=== PATIENT | female | born 1935 | race Two or more races ===

== ENCOUNTER 2019-07-25 19:47 | Inpatient (IN) | payer MEDICARE, OTHER ==
[~2019-07-25] VITALS: Ht 157.5 cm; Wt 56.2 kg
--- NOTE | 2019-07-25 19:50 | NUR ---
PT AAOX1. FOLLOWS COMMANDS AND IS SLOVENIAN SPEAKING. BIBPA C/O COUGH & CONGESTION, (+) COVID 07/18. UPON ARRIVAL NO COUGH NOR CONGESTION NOTED. PT PLACED ON MONITOR AND PULSE OX. VSS.
[2019-07-25] MEDS ORDERED: DOCU-141 PO (20:03)
[2019-07-25] MEDS ORDERED: LACT-47 PO (20:03)
[2019-07-25] MEDS ORDERED: ESCI10TA PO (20:03)
[2019-07-25] MEDS ORDERED: METO-357 PO (20:03)
[2019-07-25] MEDS ORDERED: RALO60TA PO (20:03)
[2019-07-25] MEDS ORDERED: TRAZ-257 PO (20:03)
[2019-07-25] MEDS ORDERED: ACET-907 PO (20:03)
--- NOTE | 2019-07-25 20:29 | NUR ---
BURLAP ROLL COVERER AT BEDSIDE FOR LABS
--- NOTE | 2019-07-25 20:38 | NUR ---
CALLED LAB FOR COVID TEST
[2019-07-25 20:42] LABS: BASOPHILS % (AUTO) 0.7 % (0.0-2.0); EOSINOPHILS % (AUTO) 1.2 % (0.0-6.0); HEMATOCRIT 47 % (33-45); HEMOGLOBIN 15.3 g/dL (11.5-14.8); LYMPHOCYTES # (AUTO) 1.3 /CMM (0.8-4.8); LYMPHOCYTES % (AUTO) 35.8 % (20.0-44.0); MEAN CORPUSCULAR HGB CONC 33 g/dl (31.0-36.0); MEAN CORPUSCULAR VOLUME 87 fL (82-100); MONOCYTES # (AUTO) 0.6 /CMM (0.1-1.30); MONOCYTES % (AUTO) 16.4 % (2.0-12.0); NEUTROPHILS # (AUTO) 1.7 /CMM (1.8-8.9); NEUTROPHILS % (AUTO) 45.9 % (43.0-81.0); PLATELET COUNT (AUTO) 198 /CMM (150-450); RED BLOOD CELL COUNT(AUTO) 5.39 MIL/uL (4.0-5.2); WHITE BLOOD COUNT (AUTO) 3.7 K/uL (4.3-11.0)
[2019-07-25 20:52] LABS: CALCIUM, SERUM 8.4 mg/dL (8.5-10.1); CARBON DIOXIDE 29 mmol/L (21-32); CHLORIDE 107 mmol/L (98-107); CREATININE 1.2 mg/dL (0.6-1.3); GLUCOSE 87 mg/dL (74-106); SODIUM SERUM 142 mmol/L (136-145); UREA NITROGEN, BLOOD 20 mg/dL (7-18)
--- NOTE | 2019-07-25 20:52 | NUR ---
URINE, COVID, AND INF SENT TO LAB
[2019-07-25 21:05] LABS: ALANINE AMINOTRANSFERASE 19 U/L (12-78); ALBUMIN 3.1 g/dL (3.4-5.0); ALKALINE PHOSPHATASE 63 U/L (46-116); ASPARTATE AMINOTRANSFERASE 13 U/L (15-37); B-TYPE NATRIURETIC PEPTIDE 427 PG/ML (0-125); BILIRUBIN,TOTAL 0.5 mg/dL (0.2-1.0); TOTAL PROTEIN, SERUM 6.1 g/dL (6.4-8.2)
[2019-07-25 21:08] LABS: APPEARANCE,URINE Slightly Cloudy (CLEAR); BILIRUBIN,URINE Negative (NEGATIVE); BLOOD, URINE Negative Ery/uL (NEGATIVE); COLOR,URINE Dark (YELLOW); KETONES,URINE Trace (NEGATIVE); LEUKOCYTE ESTERASE ,URINE Negative (NEGATIVE); NITRITE, URINE Negative (NEGATIVE); PROTEIN,URINE Trace mg/dl (NEGATIVE); UGLUCOSE Negative (NEGATIVE); UROBILINOGEN,URINE 0.2 EU/dL (0.2)
[2019-07-25 21:17] LABS: BACTERIA,URINE Moderate /HPF (None Seen)
[2019-07-25 21:18] LABS: RBC,URINE 0-2 /HPF (0-2); SQUAMOUS EPITHELIAL CELL,UR Few /HPF (None Seen); WBC,URINE 0-2 /HPF (0-3)
[2019-07-25 21:19] LABS: HYALINE CASTS, URINE Rare /LPF (None Seen)
[2019-07-25 21:22] LABS: D-DIMER 0.41 mg/L(FEU (0.17-0.50)
[2019-07-25 21:34] LABS: C-REACTIVE PROTEIN 1.1 mg/dL (0.0-0.9); CREATINE KINASE, TOTAL 31 U/L (26-192); FERRITIN 78 ng/mL (8-388)
[2019-07-25] MEDS ORDERED: ONDANSETRON HCL/PF 4 MG/2 ML VIAL IVP PRN (22:00)
[2019-07-25] MEDS ORDERED: ZOLPIDEM TARTRATE 5 MG TABLET PO PRN (22:00)
[2019-07-25] MEDS ORDERED: MAG HYDROX/AL HYDROX/SIMETH 30 ML UDC PO PRN (22:00)
[2019-07-25] MEDS ORDERED: Z GUARD REMEDY 2 OZ OINT TP PRN (22:00)
[2019-07-25] MEDS ORDERED: ACETAMINOPHEN 325 MG TABLET PO PRN (22:00)
[2019-07-25] MEDS ORDERED: MAGNESIUM HYDROXIDE 30 ML UDC PO PRN (22:00)
[2019-07-25] MEDS ORDERED: HYDROCODONE/APAP 5/325MG 1 EACH TABLET PO PRN (22:00)
[2019-07-25] MEDS ORDERED: LORAZEPAM INJ 2 MG/ML VIAL IV ONE (22:30)
[2019-07-25] MEDS: TRAZODONE 50 MG TABLET PO SCH (22:33)
--- NOTE | 2019-07-25 22:55 | NUR ---
REPORT GIVEN TO EDITH CRAWFORD FOR DAXA
--- NOTE | 2019-07-25 23:22 | NUR ---
PT TRANSFERED PER ACLS PROTOCOL
--- NOTE | 2019-07-25 23:30 | NUR ---
RN NOTE PT ARRIVED VIA GURNEY A/O X 2, PT ON RA, VS TAKEN PT CLEANED AND MADE COMFORTABLE. PT IN NO RESPIRATORY DISTRESS, IV TO LEFT WRIST 20 GAUGE PATENT AND INTACT, FLUSHING WELL. PT PLACED ON TELE MONITOR CURRENTLY SR 68, SIDE SAILS UP X 2, BED LOCKED AND IN LOWEST POSITION WILL CONTINUE TO MONITOR PT
[2019-07-26] VITALS: BP 143/71
[2019-07-26 04:00] VITALS: BP 150/71
[2019-07-26] MEDS ORDERED: LORAZEPAM INJ 2 MG/ML VIAL IV ONE (04:08)
--- NOTE | 2019-07-26 06:43 | NUR ---
RN CLOSING NOTE PT AWAKE, SITING UP IN BED, PT ON RA IN NO RESPIRATORY DISTRESS, IV TO LEFT WRIST 20 GAUGE PATENT AND INTACT, FLUSHING WELL. PT ON TELE MONITOR CURRENTLY SR, SIDE SAILS UP X 3, BED LOCKED AND IN LOWEST POSITION WILL CONTINUE TO MONITOR PT.
[2019-07-26 06:55] LABS: BASOPHILS % (AUTO) 0.4 % (0.0-2.0); EOSINOPHILS % (AUTO) 1.3 % (0.0-6.0); HEMATOCRIT 46 % (33-45); HEMOGLOBIN 15.3 g/dL (11.5-14.8); LYMPHOCYTES # (AUTO) 1.5 /CMM (0.8-4.8); LYMPHOCYTES % (AUTO) 37.9 % (20.0-44.0); MEAN CORPUSCULAR HGB CONC 33 g/dl (31.0-36.0); MEAN CORPUSCULAR VOLUME 86 fL (82-100); MONOCYTES # (AUTO) 0.7 /CMM (0.1-1.30); MONOCYTES % (AUTO) 16.8 % (2.0-12.0); NEUTROPHILS # (AUTO) 1.8 /CMM (1.8-8.9); NEUTROPHILS % (AUTO) 43.6 % (43.0-81.0); PLATELET COUNT (AUTO) 185 /CMM (150-450); RED BLOOD CELL COUNT(AUTO) 5.37 MIL/uL (4.0-5.2); WHITE BLOOD COUNT (AUTO) 4.1 K/uL (4.3-11.0)
--- NOTE | 2019-07-26 07:15 | NUR ---
MS RN RECEIVED ON BED,SLEEPING,NOT IN ANY FORM OF DISTRESS, BILATERAL ARM SOFT RESTRAINT ON, FOR SAFETY,IV AT LEFT WRIST, LEAKING, NOT FUNCTIONING, WILL MONITOR PATIENT.
[2019-07-26 07:23] LABS: CALCIUM, SERUM 8.7 mg/dL (8.5-10.1); MAGNESIUM 2.1 mg/dL (1.8-2.4); PHOSPHORUS 3.5 mg/dL (2.5-4.9); POTASSIUM 4.3 mmol/L (3.5-5.1)
[2019-07-26 08:00] VITALS: BP_SYST 140; BP_SYST 141; BP_DIAS 50; BP_DIAS 55
[2019-07-26] MEDS ORDERED: IV NS 0.9% 1,000 ML IV PRN (09:51)
--- NOTE | 2019-07-26 10:30 | NUR ---
MS CRAWFORD AM MEDS,GIVEN GIVEN,TOLERATED WELL.
[2019-07-26] MEDS: METOPROLOL SUCCINATE 50 MG TAB.SR.24H PO SCH (10:52)
[2019-07-26] MEDS: DOCUSATE SODIUM 100 MG CAPSULE PO SCH (10:53)
[2019-07-26] MEDS: ESCITALOPRAM OXALATE (10 MG) 10 MG TABLET PO SCH (10:53)
--- NOTE | 2019-07-26 11:50 | NUR ---
MS RN PATIENT AWAKE, VERY CONFUSED, COMBATIVE, GETTING OUT OF BED, WILL MONITOR PATIENT.
[2019-07-26 12:00] VITALS: BP_SYST 140; BP_SYST 144; BP_DIAS 56; BP_DIAS 60
[2019-07-26] MEDS ORDERED: hydrOXYzine HCL INJ 25 MG/ML VIAL IM STA (12:13)
--- NOTE | 2019-07-26 12:22 | NUR ---
DR. LONI DUMONT NOTIFIED PATIENT VERY CONFUSED PULLING OUT RESTRAINT,FALL RISK UNABLE TO GIVE VISTARIL PER PHARMACY NOT AVAILABLE,LONI DUMONT PAGED AWAITS FOR RESPONSE.
[2019-07-26] MEDS ORDERED: LORAZEPAM INJ 2 MG/ML VIAL IM/IV STA (12:29)
--- NOTE | 2019-07-26 12:32 | NUR ---
PATIENT VERY CONFUSED SCREAMING AND SITTING EDGE OF BED ,ABLE TO BREAK RESTRAINT,DR. LONI DUMONT ORDERED ATIVAN AND WILL WATCH RESPIRATORY STATUS .NURSING PRODUCT INTRODUCTION MANAGER NOTIFIED REGARDING SITTER ORDER.
[2019-07-26 16:00] VITALS: BP 142/55
--- NOTE | 2019-07-26 17:50 | NUR ---
MS RN ON BED,, W/ SITTER, REFUSED TO INSERT IV,NO DISTRESS NOTED, W/ SITTER NOW FOR SAFETY AND COMFORT.
[2019-07-26 20:00] VITALS: BP 126/61
--- NOTE | 2019-07-26 20:00 | NUR ---
RN NOTES RECEIVED PT. AWAKE , A/OX2, FARSI SPEAKING WITH SITTER, SR WITH BBB ON TELE MONITOR HR-87, NO IV ACCESS, TALKED TO THE PATIENT BUT PT DOESN'T WANT ME TO TOUCH HER ARM, SIDERAILSUPX2, CALL LIGHT WITHIN REACH, SIDERAILSUPX2, WILL CONTINUE TO MONITOR
[2019-07-26] MEDS: TRAZODONE 50 MG TABLET PO SCH (22:59)
[2019-07-27] VITALS: BP 101/55
--- NOTE | 2019-07-27 01:32 | NUR ---
RN NOTES 0129 RECEIVED CALL FROM LAB C/O Meng SERRA FOR COVID RESULT POSITIVE. PRIMARY RN LIZA MADE AWARE
--- NOTE | 2019-07-27 03:00 | NUR ---
RN NOTES PT IS NOT ON RESTRAINTS Addendum: 07/27/19 at 0315 by LIZA BRADSHAW RN Amended: Links added.
[2019-07-27 04:00] VITALS: BP 126/83
--- NOTE | 2019-07-27 06:00 | NUR ---
RN NOTES INFORMED JOSE G GOINS THAT PT. IS REFUSING TO HAVE AN IV ACCESS
--- NOTE | 2019-07-27 06:43 | NUR ---
RN NOTES AAKE, MORNING CARE RENDERED, NOT IN DISTRESS, NO PAIN NOTED, PT. NEEDS ATTENDED
--- NOTE | 2019-07-27 07:30 | NUR ---
rn notes received patient in bed, awake, able to make needs known but expresses self best in [facility]. not on any form of distress, breathing unlabored, on room air, toleratign well. no complaints of pain. sinus rhythm on the monitor with hr on the on the 70s. patient with no iv access at this time- per report MD is aware, will try to insert one when able. patient encourage to call for help/assistance, safety measures observed and maintained. bed alarm on, call light within reach, will continue to monitor patient accordingly
[2019-07-27 08:00] VITALS: BP 128/74
[2019-07-27] MEDS: ESCITALOPRAM OXALATE (10 MG) 10 MG TABLET PO SCH (08:05)
[2019-07-27] MEDS: DOCUSATE SODIUM 100 MG CAPSULE PO SCH (08:05)
[2019-07-27] MEDS: METOPROLOL SUCCINATE 50 MG TAB.SR.24H PO SCH (08:09)
[2019-07-27 12:00] VITALS: BP 141/79
[2019-07-27 16:00] VITALS: BP 127/76
--- NOTE | 2019-07-27 18:52 | NUR ---
Handoff with night team registered nurse. Pedro Rutherford RN
[2019-07-27 20:00] VITALS: BP 145/76
[2019-07-27] MEDS: TRAZODONE 50 MG TABLET PO SCH (21:24)
[2019-07-28] VITALS (7 sets, daily range): BP systolic 131–142; BP diastolic 60–77
--- NOTE | 2019-07-28 01:37 | NUR ---
PATIENT CONTINUES TO PULL OUT LEADS FROM TELE MONITOR. NO SITTER AT THIS TIME. WILL CONTINUE TO MONITOR PATIENT.
[2019-07-28 06:31] LABS: BASOPHILS % (AUTO) 0.3 % (0.0-2.0); EOSINOPHILS % (AUTO) 1.2 % (0.0-6.0); HEMATOCRIT 46 % (33-45); HEMOGLOBIN 15.2 g/dL (11.5-14.8); LYMPHOCYTES # (AUTO) 1.2 /CMM (0.8-4.8); LYMPHOCYTES % (AUTO) 24.5 % (20.0-44.0); MEAN CORPUSCULAR HGB CONC 33 g/dl (31.0-36.0); MEAN CORPUSCULAR VOLUME 86 fL (82-100); MONOCYTES # (AUTO) 0.6 /CMM (0.1-1.30); MONOCYTES % (AUTO) 12.1 % (2.0-12.0); NEUTROPHILS % (AUTO) 61.9 % (43.0-81.0); PLATELET COUNT (AUTO) 175 /CMM (150-450); WHITE BLOOD COUNT (AUTO) 4.9 K/uL (4.3-11.0)
[2019-07-28 06:54] LABS: CALCIUM, SERUM 8.2 mg/dL (8.5-10.1); CREATININE 1.1 mg/dL (0.6-1.3); PHOSPHORUS 3.2 mg/dL (2.5-4.9); POTASSIUM 3.9 mmol/L (3.5-5.1)
--- NOTE | 2019-07-28 07:04 | NUR ---
TELE/RN PATIENT IN BED ASLEEP ON ROOM AIR WITH NO SIGN ON ANY SOB SATURATING AT 96%. PATIENT IS AMBULATORY WITH BATHROOM PRIVILEGES. PATIENT CONT TO HAVE NO IV ACCESS. PATIENT HAS PULLED OUT IV BEFORE. AND CONTINUOUSLY REMOVES TELE BOX. ALL SAFETY PRECAUTIONS HAVE BEEN APPLIED. WILL ENDORSE PATIENT TO MORNING SHIFT NURSE FOR DAXA.
[2019-07-28] MEDS: ESCITALOPRAM OXALATE (10 MG) 10 MG TABLET PO SCH (09:33)
[2019-07-28] MEDS: DOCUSATE SODIUM 100 MG CAPSULE PO SCH (09:33)
[2019-07-28] MEDS: METOPROLOL SUCCINATE 50 MG TAB.SR.24H PO SCH (09:36)
--- NOTE | 2019-07-28 14:38 | NUR ---
alert, oriented, and appropriate, ra, sat well. walked to the bathroom, no assistance needed. no iv access, no heart monitor, no bed alarm. cooperative with care
[2019-07-28] MEDS: TRAZODONE 50 MG TABLET PO SCH (22:00)
[2019-07-29] VITALS (7 sets, daily range): BP systolic 113–136; BP diastolic 64–81
[2019-07-29 07:03] LABS: BASOPHILS % (AUTO) 0.2 % (0.0-2.0); EOSINOPHILS % (AUTO) 0.3 % (0.0-6.0); HEMATOCRIT 46 % (33-45); HEMOGLOBIN 15.2 g/dL (11.5-14.8); LYMPHOCYTES # (AUTO) 1.3 /CMM (0.8-4.8); LYMPHOCYTES % (AUTO) 22.8 % (20.0-44.0); MEAN CORPUSCULAR HGB CONC 33 g/dl (31.0-36.0); MEAN CORPUSCULAR VOLUME 86 fL (82-100); MONOCYTES # (AUTO) 0.8 /CMM (0.1-1.30); MONOCYTES % (AUTO) 13.7 % (2.0-12.0); NEUTROPHILS # (AUTO) 3.5 /CMM (1.8-8.9); PLATELET COUNT (AUTO) 182 /CMM (150-450); RED BLOOD CELL COUNT(AUTO) 5.31 MIL/uL (4.0-5.2); WHITE BLOOD COUNT (AUTO) 5.5 K/uL (4.3-11.0)
[2019-07-29 07:17] LABS: CALCIUM, SERUM 8.3 mg/dL (8.5-10.1); CREATININE 1.1 mg/dL (0.6-1.3); PHOSPHORUS 3.7 mg/dL (2.5-4.9); POTASSIUM 3.5 mmol/L (3.5-5.1)
--- NOTE | 2019-07-29 07:40 | NUR ---
RN NOTES RECEIVED PATIENT IN BED ASLEEP ON ROOM AIR, TOLERATING WELL. NO SIGNS OF ACUTE DISTRESS NOTED AT THIS TIME. NO IV ACCESS PER SEWAGE SCREEN OPERATOR PATIENT REFUSED EVEN AFTER EXPLAINING THE RISKS AND BENEFITS. ALL SAFETY PRECAUTIONS HAVE BEEN APPLIED. WILL CONTINUE TO MONITOR.
[2019-07-29] MEDS: DOCUSATE SODIUM 100 MG CAPSULE PO SCH (08:24)
[2019-07-29] MEDS: ESCITALOPRAM OXALATE (10 MG) 10 MG TABLET PO SCH (08:24)
[2019-07-29] MEDS: METOPROLOL SUCCINATE 50 MG TAB.SR.24H PO SCH (08:25)
--- NOTE | 2019-07-29 19:00 | NUR ---
recieved the patient in bed . smiling and waving to me as i walked toward her be. she drank some juice and had no problems swallowing. asp precautions in effect d/t age. droplet and contact isolation on going
--- NOTE | 2019-07-29 19:06 | NUR ---
RN NOTES PATIENT IN BED ASLEEP ON ROOM AIR, TOLERATING WELL. NO SIGNS OF ACUTE DISTRESS NOTED THROUGHOUT THE SHIFT. NO IV ACCESS PER REPLENISHMENT BUYER PATIENT REFUSED EVEN AFTER EXPLAINING THE RISKS AND BENEFITS. ALL SAFETY PRECAUTIONS HAVE BEEN APPLIED. WILL ENDORSE TO REPLENISHMENT BUYER NURSE FOR DAXA.
[2019-07-29] MEDS: TRAZODONE 50 MG TABLET PO SCH (22:12)
[2019-07-30 05:00] VITALS: BP 134/77
[2019-07-30 06:39] LABS: BASOPHILS % (AUTO) 0.4 % (0.0-2.0); EOSINOPHILS % (AUTO) 1.1 % (0.0-6.0); HEMATOCRIT 47 % (33-45); HEMOGLOBIN 15.2 g/dL (11.5-14.8); LYMPHOCYTES # (AUTO) 1.8 /CMM (0.8-4.8); LYMPHOCYTES % (AUTO) 32.6 % (20.0-44.0); MEAN CORPUSCULAR HGB CONC 32 g/dl (31.0-36.0); MEAN CORPUSCULAR VOLUME 86 fL (82-100); MONOCYTES # (AUTO) 0.9 /CMM (0.1-1.30); MONOCYTES % (AUTO) 16.6 % (2.0-12.0); NEUTROPHILS # (AUTO) 2.6 /CMM (1.8-8.9); NEUTROPHILS % (AUTO) 49.3 % (43.0-81.0); PLATELET COUNT (AUTO) 172 /CMM (150-450); RED BLOOD CELL COUNT(AUTO) 5.45 MIL/uL (4.0-5.2); WHITE BLOOD COUNT (AUTO) 5.4 K/uL (4.3-11.0)
[2019-07-30 06:46] LABS: CALCIUM, SERUM 8.3 mg/dL (8.5-10.1); CREATININE 0.9 mg/dL (0.6-1.3); MAGNESIUM 2.1 mg/dL (1.8-2.4); POTASSIUM 3.7 mmol/L (3.5-5.1)
[2019-07-30 08:00] VITALS: BP 127/68
--- NOTE | 2019-07-30 08:00 | NUR ---
SENIOR ARCHITECT/DESIGN MANAGER OPENING NOTES RECEIVED PATIENT FROM PERFORMING ARTIST NURSE IN BED, AWAKE, CONSCIOUS, COOPERATIVE, WITH NASAL CANNULA AT 2LPM, NO SIGNS OF RESPIRATORY DISTRESS, NO IV ACCESS, MD AWARE PER PERFORMING ARTIST NURSE.
[2019-07-30] MEDS: DOCUSATE SODIUM 100 MG CAPSULE PO SCH (09:26)
[2019-07-30] MEDS: ESCITALOPRAM OXALATE (10 MG) 10 MG TABLET PO SCH (09:26)
[2019-07-30] MEDS: METOPROLOL SUCCINATE 50 MG TAB.SR.24H PO SCH (09:27)
[2019-07-30 12:00] VITALS: BP 129/59
[2019-07-30 13:00] VITALS: BP 129/59
[2019-07-30 16:00] VITALS: BP 131/75
--- NOTE | 2019-07-30 19:01 | NUR ---
REHABILITATION COUNSELLOR CLOSING NOTES ENDORSED PATIENT TO ELECTRONICS INSTALLER NURSE, IN BED, AWAKE, A/O X 3, NC AT 2LPM, NO SIGNS OF RESPIRATORY DISTRESS, NO IV ACCESS, MD AWARE, SIDE RAILS UP FOR SAFETY.
--- NOTE | 2019-07-30 19:30 | NUR ---
PHYSICIAN EXECUTIVE OPENING NOTE RECEIVED PATIENT ON ISOLATION FOR COVID 19. PATIENT IN BED. A/O X1, RESPONDS TO TOUCH. PATIENT ON OXYGEN 4L/MIN VIA NASAL CANNULA. RESPIRATIONS ARE EVEN AND UNLABORED. NO S/S SOB NOTED. NO S/S PAIN AT THIS TIME. EXTERNAL TELE MONITOR READS SINUS RHYTHM HR 64, GOING IN AND OUT OF AFIB. IN NO APPARENT DISTRESS. IV ACCESS KENYON MIDLINE PATENT AND SALINE LOCKED. BED IS LOW AND LOCKED, HOB ELEVATED IN SEMI FOWLERS, SIDE RAILS UP X3, EXTREMITIES OFFLOADED. CALL LIGHT WITHIN REACH. WILL CONTINUE TO MONITOR. Addendum: 07/31/19 at 0619 by DAVIDA CHANDRA RN PLEASE DISREGARD THIS NOTE. WRONG PATIENT.
--- NOTE | 2019-07-30 19:30 | NUR ---
MS RN OPENING NOTE RECEIVED PATIENT ON ISOLATION FOR COVID 19. PATIENT IN BED. A/O X2, FARSI SPEAKING PER REPORT IS CONFUSED. TOLERATING ROOM AIR. RESPIRATIONS ARE EVEN AND UNLABORED. NO S/S SOB NOTED. NO C/O PAIN AT THIS TIME. IN NO APPARENT DISTRESS. NO IV ACCESS NOTED, PER REPORT MD AWARE. BED IS LOW AND LOCKED, HOB ELEVATED IN SEMI FOWLERS, SIDE RAILS UP X3. CALL LIGHT WITHIN REACH. WILL CONTINUE TO MONITOR.
[2019-07-30 21:00] VITALS: BP 119/66
[2019-07-30] MEDS: TRAZODONE 50 MG TABLET PO SCH (21:38)
--- NOTE | 2019-07-30 22:30 | NUR ---
MS RN NOTE INFORMED DR. REBOLLAR THAT PATIENT IS MEDSURG AND PER DR. ECHEVARRIA PATIENT WITH COVID NEED TO BE PLACED IN TELE MONITOR. INFORMED ME HE DID NOT ORDER MED SURG STATUS AND TELEPHONE ORDERED TELE MONITORING, ORDER READ BACK NOTED AND CARRIED OUT. EXTERNAL TELE MONITOR READS. SINUS RHYTHM HR 70. WILL CONTINUE TO MONITOR.
[2019-07-31] VITALS (11 sets, daily range): BP systolic 118–158; BP diastolic 61–91
--- NOTE | 2019-07-31 06:19 | NUR ---
PERFORMANCE IMPROVEMENT ANALYST CLOSING NOTE PATIENT ON ISOLATION FOR COVID 19. PATIENT IN BED. A/O X2, CONFUSED. REMAINS TOLERATING ROOM AIR. RESPIRATIONS ARE EVEN AND UNLABORED. NO SOB NOTED. NO C/O PAIN. NO DISTRESS. STILL REMAINS WITH NO IV ACCESS. BED REMAINS LOW AND LOCKED, HOB ELEVATED IN SEMI FOWLERS, SIDE RAILS UP X3. CALL LIGHT WITHIN REACH. WILL ENDORSE TO NEXT SHIFT.
--- NOTE | 2019-07-31 07:20 | NUR ---
CHIEF OF PEDIATRIC UROLOGY NOTES RECEIVED PATIENT IN BED. ALERT AND ORIENTED X2. PATIENT CONFUSED. REMOVED TELE MONITORING NUMEROUS TIMES DESPITE OF EDUCATION AND EXPLANATIONS WITH NUMEROUS REALITY ORIENTATION. ON TELE MONITORING SR: 64. PATIENT REFUSED IV ACCES DESPITE OF EXPLANATIONS AND EDUCATION. ON ROOM AIR WITH SPO2 97%. NO SOB. AMBULATORY WITH STEADY GAIT. BED IN LOWEST POSITION, LOCKED. BED ALARM ON. CALL LIGHT WITHIN REACH.
[2019-07-31] MEDS: DOCUSATE SODIUM 100 MG CAPSULE PO SCH (08:44)
[2019-07-31] MEDS: METOPROLOL SUCCINATE 50 MG TAB.SR.24H PO SCH (08:44)
[2019-07-31] MEDS: ESCITALOPRAM OXALATE (10 MG) 10 MG TABLET PO SCH (08:44)
--- NOTE | 2019-07-31 10:00 | NUR ---
STITCHER STANDARD MACHINE NOTES MD MADE AWARE OF PATIENT REMOVING TELE BOX AND REFUSAL OF APPLICATION
--- NOTE | 2019-07-31 18:54 | NUR ---
INTELLIGENCE OFFICER NOTES PATIENT RESTING COMFORTABLY IN BED, WATCHING TV. PATIENT CONTINUES TO REFUSE IV ACCES DESPITE OF EXPLANATIONS AND EDUCATION. ON ROOM AIR WITH SPO2 97%. NO S/S OF RESPIRATORY DISTRESS. AMBULATORY WITH STEADY GAIT. BED IN LOWEST POSITION, LOCKED. BED ALARM ON. CALL LIGHT WITHIN REACH. IN NO APPARENT DISTRESS.
--- NOTE | 2019-07-31 19:10 | NUR ---
EARTH SCIENCE PROFESSOR NOTES RECEIVED PT IN BED WATCHING TV. PT CONTINUES TO REFUSE IV ACCES. RESPIRATIONS EVEN AND UNLABORED WITH NO S/S OF ACUTE DISTRESS OR SOB NOTED. NO COMPLAINTS OF PAIN AT THIS TIME. SAFETY MEASURES IN PLACE WITH BED IN LOWEST LOCKED POSITION WITH SIDE RAILS UP X2. CALL LIGHT WITHIN REACH. WILL CONTINUE TO MONITOR.
[2019-07-31] MEDS: TRAZODONE 50 MG TABLET PO SCH (22:22)
[2019-08-01] VITALS (10 sets, daily range): BP systolic 99–146; BP diastolic 64–146
[2019-08-01 06:16] LABS: BASOPHILS % (AUTO) 0.4 % (0.0-2.0); EOSINOPHILS % (AUTO) 2.1 % (0.0-6.0); HEMATOCRIT 46 % (33-45); HEMOGLOBIN 15.4 g/dL (11.5-14.8); LYMPHOCYTES # (AUTO) 1.7 /CMM (0.8-4.8); LYMPHOCYTES % (AUTO) 44.2 % (20.0-44.0); MEAN CORPUSCULAR HGB CONC 33 g/dl (31.0-36.0); MEAN CORPUSCULAR VOLUME 86 fL (82-100); MONOCYTES # (AUTO) 0.6 /CMM (0.1-1.30); MONOCYTES % (AUTO) 15.6 % (2.0-12.0); NEUTROPHILS # (AUTO) 1.4 /CMM (1.8-8.9); NEUTROPHILS % (AUTO) 37.7 % (43.0-81.0); PLATELET COUNT (AUTO) 176 /CMM (150-450); RED BLOOD CELL COUNT(AUTO) 5.41 MIL/uL (4.0-5.2); WHITE BLOOD COUNT (AUTO) 3.8 K/uL (4.3-11.0)
[2019-08-01 07:09] LABS: CALCIUM, SERUM 8.4 mg/dL (8.5-10.1); MAGNESIUM 2.2 mg/dL (1.8-2.4); PHOSPHORUS 3.6 mg/dL (2.5-4.9); POTASSIUM 3.6 mmol/L (3.5-5.1)
--- NOTE | 2019-08-01 07:30 | NUR ---
ms rn received on bed, awake,alert,oriented x2,confuse at times, farsi spaeking female, denies pain at this time, will monitor patient.
--- NOTE | 2019-08-01 07:47 | NUR ---
MINI SHIFTER NOTES PT IN BED RESTING. PT CONTINUES TO REFUSE IV ACCES. RESPIRATIONS EVEN AND UNLABORED WITH NO S/S OF ACUTE DISTRESS OR SOB NOTED THROUGHOUT SHIFT. NO COMPLAINTS OF PAIN AT THIS TIME. SAFETY MEASURES IN PLACE WITH BED IN LOWEST LOCKED POSITION WITH SIDE RAILS UP X2. CALL LIGHT WITHIN REACH. WILL ENDORSE TO ONCOMING NURSE FOR DAXA.
--- NOTE | 2019-08-01 09:40 | NUR ---
ms skinner breakfast served,due meds given,tolerated well.
[2019-08-01] MEDS: ESCITALOPRAM OXALATE (10 MG) 10 MG TABLET PO SCH (09:43)
[2019-08-01] MEDS: DOCUSATE SODIUM 100 MG CAPSULE PO SCH (09:43)
[2019-08-01] MEDS: METOPROLOL SUCCINATE 50 MG TAB.SR.24H PO SCH (09:44)
--- NOTE | 2019-08-01 16:46 | NUR ---
ms rn on bed, no distress noted.
--- NOTE | 2019-08-01 19:35 | NUR ---
YARD DEMURRAGE CLERK OPENING NOTES PATIENT SLEEPING IN BED, EASY TO AWAKEN. AOX2. STABLE ON RA. NO IV ACCESS PRESENT AND TELE MONITOR; PATIENT REFUSES; MD AWARE. SAFETY MEASURES IN PLACE AND PATIENT'S NEEDS MET. BED LOCKED, ALARM ON, SIDE RAILS X2, CALL LIGHT WITHIN REACH. WILL CONTINUE TO MONITOR.
[2019-08-01] MEDS: TRAZODONE 50 MG TABLET PO SCH (21:13)
[2019-08-02] VITALS (9 sets, daily range): BP systolic 128–160; BP diastolic 68–81
--- NOTE | 2019-08-02 06:38 | NUR ---
SOLUTION PROFESSIONAL CLOSING NOTES PATIENT SLEEPING IN BED, EASY TO AWAKEN. AOX2. REMAINED STABLE DURING SHIFT. STABLE ON RA. NO S/S OF ACUTE RESPIRATORY DISTRESS OR C/O PAIN. NO IV ACCESS PRESENT OR TELE MONITOR; PATIENT REFUSES; MD AWARE. SAFETY MEASURES IN PLACE AND PATIENT'S NEEDS MET. BED LOCKED, ALARM ON, SIDE RAILS X2, CALL LIGHT WITHIN REACH. WILL ENDORSE TO DAY SHIFT NURSE PLAN OF CARE.
[2019-08-02 06:47] LABS: CALCIUM, SERUM 8.6 mg/dL (8.5-10.1); MAGNESIUM 2.1 mg/dL (1.8-2.4); PHOSPHORUS 3.4 mg/dL (2.5-4.9)
[2019-08-02 06:54] LABS: BASOPHILS % (AUTO) 0.5 % (0.0-2.0); EOSINOPHILS % (AUTO) 2.8 % (0.0-6.0); HEMATOCRIT 48 % (33-45); LYMPHOCYTES # (AUTO) 1.9 /CMM (0.8-4.8); LYMPHOCYTES % (AUTO) 49.7 % (20.0-44.0); MEAN CORPUSCULAR HGB CONC 33 g/dl (31.0-36.0); MEAN CORPUSCULAR VOLUME 86 fL (82-100); MONOCYTES # (AUTO) 0.5 /CMM (0.1-1.30); MONOCYTES % (AUTO) 12.3 % (2.0-12.0); NEUTROPHILS # (AUTO) 1.4 /CMM (1.8-8.9); NEUTROPHILS % (AUTO) 34.7 % (43.0-81.0); PLATELET COUNT (AUTO) 210 /CMM (150-450); RED BLOOD CELL COUNT(AUTO) 5.63 MIL/uL (4.0-5.2); WHITE BLOOD COUNT (AUTO) 3.9 K/uL (4.3-11.0)
--- NOTE | 2019-08-02 07:50 | NUR ---
AREA REPRESENTATIVE NOTES PATIENT RESTING IN BED, NO RESPIRATORY DISTRESS, NO S/S OF ANY DISCOMFORT AT THIS TIME. SKIN WARM TO TOUCH, NNO IV ACCESS. SAFETY PRECAUTION IN PLACE. PATIENT'S NEEDS ATTENDED, BED ON LOWEST LOCKED POSITION, CALL LIGHT WITHIN REACH. WILL CONTINUE TO MONITOR.
[2019-08-02] MEDS: DOCUSATE SODIUM 100 MG CAPSULE PO SCH (08:50)
[2019-08-02] MEDS: ESCITALOPRAM OXALATE (10 MG) 10 MG TABLET PO SCH (08:50)
[2019-08-02] MEDS: METOPROLOL SUCCINATE 50 MG TAB.SR.24H PO SCH (08:50)
--- NOTE | 2019-08-02 19:10 | NUR ---
LEARNING AND DEVELOPMENT ASSOCIATE NOTES PATIENT AWAKE IN BED, PATIENT BEING RESTLESS. PATIENT WITH NO RESPIRATORY DISTRESS, NO S/S OF ANY DISCOMFORT AT THIS TIME. SKIN WARM TO TOUCH, NO IV ACCESS. SAFETY PRECAUTION IN PLACE. PATIENT'S NEEDS ATTENDED, BED ON LOWEST LOCKED POSITION, CALL LIGHT WITHIN REACH. WILL ENDORSE TO ONCOMING NURSE.
--- NOTE | 2019-08-02 19:15 | NUR ---
TELE/RN OPENING NOTES: RECEIVED PATIENT AWAKE AND PACING AROUND THE ROOM. A/OX2, FARSI SPEAKING, AND UNDERSTANDS MINIMAL UPPER SORBIAN. IN A CALM MOOD AT THIS TIME. NO SOB NOTED. NO RESPIRATORY DISTRESS, NO S/S OF ANY DISCOMFORT AT THIS TIME. SKIN WARM TO TOUCH, NO IV ACCESS. PER REPORT, PT. REFUSES IV LINE INSERTION WELL BEING PLACED ON THE TELE MONITOR. SAFETY PRECAUTION IN PLACE. PATIENT'S NEEDS ATTENDED, BED ON LOWEST LOCKED POSITION, CALL LIGHT WITHIN REACH. WILL CONTINUE MONITORING ACCORDINGLY.
[2019-08-02] MEDS: TRAZODONE 50 MG TABLET PO SCH (22:03)
[2019-08-03] VITALS (9 sets, daily range): BP systolic 122–147; BP diastolic 57–90
--- NOTE | 2019-08-03 06:11 | NUR ---
TELE/RN CLOSING NOTES: PATIENT IS SLEEPING IN BED, EASY TO AWAKEN WITH STIMULUS. REMAINS AOX2. STABLE DURING SHIFT. ON RA SATURATING AT 96%. NO S/S OF ACUTE RESPIRATORY DISTRESS OR C/O PAIN. NO IV ACCESS PRESENT OR TELE MONITOR; PATIENT REFUSES; MD AWARE. ALL DUE MEDS GIVEN ORDERED. ALL NURSING NEEDS MET AND PROVIDED. SAFETY MEASURES IN PLACE AND PATIENT'S NEEDS MET. BED LOCKED, ALARM ON, SIDE RAILS X2, CALL LIGHT WITHIN REACH. WILL ENDORSE TO DAY SHIFT NURSE CONTINUITY OF PLAN OF CARE.
[2019-08-03 06:23] LABS: BASOPHILS % (AUTO) 0.5 % (0.0-2.0); EOSINOPHILS % (AUTO) 2.5 % (0.0-6.0); HEMATOCRIT 47 % (33-45); HEMOGLOBIN 15.6 g/dL (11.5-14.8); LYMPHOCYTES # (AUTO) 1.7 /CMM (0.8-4.8); LYMPHOCYTES % (AUTO) 42.9 % (20.0-44.0); MEAN CORPUSCULAR HGB CONC 33 g/dl (31.0-36.0); MEAN CORPUSCULAR VOLUME 86 fL (82-100); MONOCYTES # (AUTO) 0.5 /CMM (0.1-1.30); NEUTROPHILS # (AUTO) 1.6 /CMM (1.8-8.9); NEUTROPHILS % (AUTO) 40.1 % (43.0-81.0); PLATELET COUNT (AUTO) 211 /CMM (150-450); RED BLOOD CELL COUNT(AUTO) 5.48 MIL/uL (4.0-5.2); WHITE BLOOD COUNT (AUTO) 3.9 K/uL (4.3-11.0)
[2019-08-03 06:49] LABS: CALCIUM, SERUM 8.6 mg/dL (8.5-10.1); CREATININE 1.1 mg/dL (0.6-1.3); MAGNESIUM 2.1 mg/dL (1.8-2.4); PHOSPHORUS 3.6 mg/dL (2.5-4.9); POTASSIUM 4.5 mmol/L (3.5-5.1)
[2019-08-03] MEDS: ESCITALOPRAM OXALATE (10 MG) 10 MG TABLET PO SCH (08:39)
[2019-08-03] MEDS: DOCUSATE SODIUM 100 MG CAPSULE PO SCH (08:39)
[2019-08-03] MEDS: METOPROLOL SUCCINATE 50 MG TAB.SR.24H PO SCH (08:39)
--- NOTE | 2019-08-03 09:55 | NUR ---
COMMODITY LEAD NOTES PATIENT IS A/OX 2 FARSI SPEAKER. AWAKE AND WALKING IN THE ROOM. REAPPLY THE HEART MONITOR BUT SHE IS CONFUSED AND REMOVING THE MONITOR. NO FEVER AND SATURATING 98%. PATIENT IS REQUESTING TO TALK TO FAMILY. DAUGHTER CONTACTED AND SHE WAS CALM AFTER PHONE CONVERSATION. CALL LIGHT WITHIN REACH BED AT THE LOWEST POSITION LOCKED. WILL CONTINUE TO MONITOR THE PATIENT.
--- NOTE | 2019-08-03 09:59 | NUR ---
MILLINER HELPER NOTES PATIENT HAS NO IV ACCESS. PER SENIOR ORACLE DATABASE DEVELOPER NURSE , ALLEN, SHE REFUSED THE IV ACCESS AND MD IS AWARE.
--- NOTE | 2019-08-03 14:22 | NUR ---
MANAGER SOCIAL RESPONSIBILITY NOTES PATIENT IS AGITATE AND MAD AT STAFF AND TRIES TO GET OUT OF THE ROOM. CALLED SKIDDER ALANA SARMIENTO AND INFORMED HER . PER SKIDDER ADMINISTER ONCE SEROQUEL 12.5 . ORDER READ BACK.
[2019-08-03] MEDS ORDERED: QUETIAPINE FUMARATE 25 MG TABLET PO ONE (14:30)
[2019-08-03] MEDS: TRAZODONE 50 MG TABLET PO SCH (23:57)
[2019-08-04] VITALS: BP 114/61
[2019-08-04 04:00] VITALS: BP 125/64
--- NOTE | 2019-08-04 07:36 | NUR ---
TECHNICAL SUPPORT INTERN OPENING NOTE RECEIVED PATIENT IN BED, ASLEEP. BREATHING ON ROOM AIR; BREATHING IS EVEN AND UNLABORED. NO SOB AT THIS TIME. EXTERNAL TIP PUNCHER WITH A READING OF SINUS JANIS 56. NO SIGNS OF PAIN SUCH FACIAL GRIMACING, GUARDING OR MOANING. NO IV ACCESS PRESENT AND PER HEALTH TECHNICIAN NURSE MD IS AWARE; PATIENT REFUSES IV LINE AND GETS VERY AGGRESSIVE. SAFETY PRECAUTIONS IN PLACE; BED IN LOW POSITION AND LOCKED, RAILS UP X2, CALL LIGHT WITHIN REACH. WILL CONTINUE TO MONITOR PATIENT.
[2019-08-04 08:00] VITALS: BP 122/67
[2019-08-04] MEDS: DOCUSATE SODIUM 100 MG CAPSULE PO SCH (08:40)
[2019-08-04] MEDS: ESCITALOPRAM OXALATE (10 MG) 10 MG TABLET PO SCH (08:40)
[2019-08-04] MEDS: METOPROLOL SUCCINATE 50 MG TAB.SR.24H PO SCH (08:40)
[2019-08-04 12:00] VITALS: BP 121/81
[2019-08-04 16:00] VITALS: BP 141/86
--- NOTE | 2019-08-04 18:35 | NUR ---
CHARGE NURSE NOTES PLACED A CALL TO [facility], THEY SAID THEY ARE RUNNING LATE. NOBODY CALLED US EARLIER THAT THEY WILL BE LATE. ETA IN 30 MINUTES
--- NOTE | 2019-08-04 18:48 | NUR ---
WOOD EXPERIMENTAL MECHANIC CLOSING NOTE PATIENT IN BED, AWAKE AND WATCHING TV; A/O X2. BREATHING ON ROOM AIR; BREATHING IS EVEN AND UNLABORED. NO SOB AT THIS TIME. PATIENT DENIES ANY PAIN. NO IV ACCESS DUE TO PATIENT REFUSAL. ALL NEEDS ATTENDED TO DURING THE DAY. SAFETY PRECAUTIONS REMAIN IN PLACE; BED IN LOW POSITION AND LOCKED, RAILS UP X2, CALL LIGHT WITHIN REACH. WILL ENDORSE TO BUSINESS SOLUTION ANALYST NURSE.
--- NOTE | 2019-08-04 19:35 | NUR ---
RN NOTES AMBULANCE HERE TO CARDIAC EXERCISE PHYSIOLOGIST PATIENT. PATIENT ALERT AND RESPONSIVE. REPORT GIVEN TO FROILAN BY DEREK NARANJO RN. NO IV ACCESS. V/S 141/63; 64; 16; 96%; 98.3 TEMP 1942 DISCHARGED TO [facility] WITH ALL BELONGINGS AND DISCHARGE PAPERS
== END 2019-08-04 19:45 | DRG 177 ==
LOC: ER 19:48 → TELE1 22:10 → MEDSG1 07-28 15:43 → TELE1 07-31 00:22
PROVIDERS: ADMIT Nurse Practitioner Acute Care; ATTEND Nurse Practitioner Acute Care
DX: U07.1 COVID-19 (principal); G93.41 Metabolic encephalopathy; J96.01 Acute respiratory failure with hypoxia; J12.89 Other viral pneumonia; N17.0 Acute kidney failure with tubular necrosis; E44.1 Mild protein-calorie malnutrition; M84.48XA Pathological fracture, other site, initial encounter for fracture; I10 Essential (primary) hypertension; F32.9 Major depressive disorder, single episode, unspecified; F03.90 Unspecified dementia, unspecified severity, without behavioral disturbance, psychotic disturbance, mood disturbance, and anxiety; E83.51 Hypocalcemia; G43.909 Migraine, unspecified, not intractable, without status migrainosus; E78.5 Hyperlipidemia, unspecified; F41.9 Anxiety disorder, unspecified; K58.9 Irritable bowel syndrome, unspecified; M81.0 Age-related osteoporosis without current pathological fracture; Z79.899 Other long term (current) drug therapy; D64.9 Anemia, unspecified; D72.819 Decreased white blood cell count, unspecified; D75.1 Secondary polycythemia; F09 Unspecified mental disorder due to known physiological condition; F39 Unspecified mood [affective] disorder; K57.30 Diverticulosis of large intestine without perforation or abscess without bleeding
CPT/HCPCS: 36415; 71045-TC; 80048-TC; 80053-TC; 80061-TC; 81000-TC; 82550-TC; 82728-TC; 83605-TC; 83615-TC; 83735-TC; 83880; 84100-TC; 84484-TC; 85025-TC; 85378-TC; 85730-TC; 86140-TC; 87040-TC; 87081-TC; 87086-TC; G0378; J2060; J3410